=== PATIENT | female | born 1955 | race Caucasian/White ===

== ENCOUNTER 2016-11-04 07:19 | Inpatient (IN) | payer OTHER ==
[~2016-11-04] VITALS: Ht 170.2 cm; Wt 76.9 kg
--- NOTE | ~2016-11-04 | ER ---
PATIENT'S NAME: VIRGINIA HERNANDEZ [facility] AGE: 60 Y [address] ROOM: [place] [address] LOCATION: [facility] ADMIT DATE: 11/04/2016 ER/Outpatient Report DISCHARGE DATE: FAMILY PHYSICIAN: PHYSICIAN, NO ATTENDING PHYSICIAN: NESHA GARZON Time of Arrival: 0719 hours. Time of Evaluation: 0730 hours. IDENTIFICATION: A 60-year-old female. CHIEF COMPLAINT: Left hip pain. HISTORY OF PRESENT ILLNESS: The patient is a 60-year-old female from [place], who is traveling through [place] for a graduation ceremony this weekend. She was in [place] and was chasing the dog when she slipped on some loose gravel and landed on her left hip. She did not hit her head. No loss of consciousness. She has pain in her left hip and inability to bear weight since that happened. This happened last night. They continued to drive on to [place]. ALLERGIES: NO KNOWN DRUG ALLERGIES. CURRENT MEDICATIONS: 1. Zoloft 25 mg daily. 2. Lipitor 10 mg daily. 3. Metformin b.i.d. MEDICAL PROBLEMS: New onset diabetes mellitus type 2, hyperlipidemia, and depression. PRIOR SURGERIES: None noted. SOCIAL HISTORY: The patient lives in [place]. Tobacco use, denies. Alcohol use, social. Drug use, denies. FAMILY HISTORY: Coronary artery disease in her father. Hypertension and stroke in her mother. REVIEW OF SYSTEMS: PATIENT'S NAME: VIRGINIA HERNANDEZ [facility] AGE: 60 Y [address] ROOM: [place] [address] LOCATION: [facility] ADMIT DATE: 11/04/2016 ER/Outpatient Report DISCHARGE DATE: FAMILY PHYSICIAN: PHYSICIAN, NO ATTENDING PHYSICIAN: NESHA GARZON All systems reviewed and negative other than what is noted in the HPI. PHYSICAL EXAMINATION: VITAL SIGNS: Height 5 feet and 7 inches, weight 76.9 kg, blood pressure 173/80, pulse 73, respirations 16, temperature 98.1, and saturations 98%. GENERAL: A 60-year-old female, in no acute distress. HEENT: Head: Normocephalic and atraumatic. Eyes: Pupils equal and reactive to light and accommodation. Extraocular movements intact. TMs not visualized. Nose: Mucosa pink. No lesions. Mouth: No lesions. Pharynx benign. NECK: Supple. No lymphadenopathy. No nuchal rigidity. No tenderness to palpation of her cervical spine. LUNGS: Clear to auscultation. Breath sounds are equal. No rhonchi, wheezes, or rales. HEART: Regular rate and rhythm. No murmur, rub, or gallop. ABDOMEN: Bowel sounds present. Soft. Nondistended. No hepatosplenomegaly. No palpable masses. Nontender. SKIN: Ewa Gentry, warm, and dry. There is ecchymosis of her left hip. No other lesions or rashes noted. NEURO: The patient is alert and oriented x4. Cranial nerves II through XII grossly intact. Motor strength 5/5 throughout. Sensation is intact to light touch. The patient is tender over the left hip. X-RAYS: Left hip and pelvis x-ray revealed a slightly displaced femoral neck fracture, pending Radiology over-read. Chest x-ray, 1 view, no acute process, pending Radiology over-read. EKG showed normal sinus rhythm at 73 beats per minute, no acute ST elevation or depression. EMERGENCY DEPARTMENT COURSE: An IV was initiated. The patient did not want anything for pain control. LABORATORY DATA: Sodium 144, potassium 3.8, chloride 111, CO2 of 23, BUN 18, creatinine 1.0, and blood sugar 117. Hemoglobin 12.6, hematocrit 39.4, platelets 304, white count 10.8 with a normal differential. INR 0.92. IMPRESSION AND PLAN: 1. Left femoral neck fracture. Plan discussed with Dr. Dupree, Orthopedic Trauma surgeon on-call, who recommended fixation. She will be admitted to the hospital. She did have a lot of questions about returning to [place]. We did talk about risks of doing so. The patient agreed for admission here per our Hospitalist Service with orthopedic consultation. 2. Diabetes mellitus type 2. 3. Hyperlipidemia. PATIENT'S NAME: VIRGINIA HERNANDEZ [facility] AGE: 60 Y [address] ROOM: [place] [address] LOCATION: [facility] ADMIT DATE: 11/04/2016 ER/Outpatient Report DISCHARGE DATE: FAMILY PHYSICIAN: PHYSICIAN, NO ATTENDING PHYSICIAN: NESHA GARZON 4. Depression. Again, the patient refused any pain control here in the emergency room. MD KAYLAH ALDRICH/phil /[id number] d: 11/04/162250 t: 11/12/16 1926, OUTPATIENT REPORT
--- NOTE | ~2016-11-04 | OR ---
PATIENT'S NAME: VIRGINIA HERNANDEZ [facility] AGE: 60 Y [address] ROOM: [place] [address] LOCATION: [facility] ADMIT DATE: 11/04/2016 OR/Procedure Report DISCHARGE DATE: FAMILY PHYSICIAN: PHYSICIAN, NO ATTENDING PHYSICIAN: NESHA GARZON SURGEON: Frank Norris MD GEOSCIENCE TECHNICIAN: Ashish Dupree PA-C. DATE OF PROCEDURE: 11/04/2016 CORRECTED WORK TYPE 11/05/16 AO PREOPERATIVE DIAGNOSIS: Left nondisplaced proximal hip fracture. POSTOPERATIVE DIAGNOSIS: Left nondisplaced proximal hip fracture. PROCEDURES PERFORMED: 1. Closed reduction and percutaneous pinning of the left hip. 2. Use of intraoperative fluoroscopy, less than one hour. ANESTHESIA: General endotracheal anesthesia. FLUIDS: See Anesthesia report. ESTIMATED BLOOD LOSS: Minimal. TOURNIQUET: None. SPECIMENS: None. COMPLICATIONS: None. DISPOSITION: None. IMPLANTS: Synthes 7.3-mm partially threaded and cannulated screws x3. INDICATIONS: Ms. Hernandez is a pleasant 60-year-old female, who underwent the noted procedures above. The risks, benefits, and alternatives of pursuing a surgical intervention were discussed with the patient in detail. She elected to proceed with surgery. Anesthesia was consulted for their perioperative evaluation of the patient. I marked the left lower extremity and indicated the correct surgical site. OPERATIVE REPORT IN DETAIL: The patient was taken from the holding area to the Operating Room. A time-out was performed. General endotracheal anesthesia was administered. Ancef antibiotic was administered for perioperative prophylaxis. PATIENT'S NAME: VIRGINIA HERNANDEZ [facility] AGE: 60 Y [address] ROOM: [place] [address] LOCATION: [facility] ADMIT DATE: 11/04/2016 OR/Procedure Report DISCHARGE DATE: FAMILY PHYSICIAN: PHYSICIAN, NO ATTENDING PHYSICIAN: NESHA GARZON The left lower extremity was then prepped and draped in a sterile fashion. A closed reduction of the left hip was ensued under intraoperative fluoroscopy. A final time-out was performed. The left lower extremity was prepped and draped in a sterile fashion. I turned my attention to the left hip. I introduced the pin in an inferior center-center position at the level of the calcar. I introduced the pin and confirmed its position fluoroscopically. Using a Linda gun, I placed and anterior-superior and posterior-superior pin forming an inverted triangle configuration. The surgical incisions were made at the percutaneous sites. They were subsequently measured. The pins were then overdrilled, and 7.3 mm partially threaded and cannulated screws were placed in a sequence from the inferior center-center screw to the posterior- superior followed by the anterior-superior screw. They were then tightened in sequence. There was good bony compression and purchase with these screws. The pins were subsequently removed. Final fluoroscopic images of the hip revealed a near anatomic closed reduction and percutaneous pinning of the left hip. The wound was then copiously irrigated with normal sterile saline solution and closed in layers. A sterile Mepilex bandage was placed over the hip. The patient was then transferred to the hip fracture table onto the hospital bed, and was extubated. She was brought to the Recovery Room in stable condition. There were no intraoperative complications noted. Of note, my PA, Ashish Dupree PA-C, played an integral role in the intraoperative care of this patient. This included preoperative positioning, intraoperative expert retraction, and closing and dressing functions. IMPRESSION: The patient is status post the noted procedure above. PLAN: The patient will be toe-touch weightbearing on the left lower extremity. Physical Therapy and Occupational Therapy will be consulted for early ambulation and prevention of deconditioning. Postoperative DVT prophylaxis will be in the form of Lovenox. Postoperative pain control in the form of Percocet and IV morphine as needed for pain. The hospitalist will continue to monitor the patient to manage the patient's concomitant medical comorbidities. The patient will also receive postoperative antibiotics per routine. I will continue to follow this patient closely in the postoperative period. PATIENT'S NAME: VIRGINIA HERNANDEZ [facility] AGE: 60 Y [address] ROOM: [place] [address] LOCATION: [facility] ADMIT DATE: 11/04/2016 OR/Procedure Report DISCHARGE DATE: FAMILY PHYSICIAN: PHYSICIAN, NO ATTENDING PHYSICIAN: NESHA GARZON MD MENDOZA LUCIANO/phil /[id number] CORRECTED WORK TYPE 11/05/16 AO d: 11/04/16 2259 t: 11/05/16 1300, OPERATIVE SUMMARY
--- NOTE | ~2016-11-04 | HP ---
PATIENT'S NAME: VIRGINIA ENCARNACION [facility] AGE: 60 Y [address] ROOM: [address] [address] LOCATION: [facility] ADMIT DATE: 11/04/2016 History & Physical DISCHARGE DATE: FAMILY PHYSICIAN: PHYSICIAN, NO ATTENDING PHYSICIAN: NESHA GARZON DATE OF SERVICE: 11/04/2016 CHIEF COMPLAINT: Left hip and groin pain. HISTORY OF PRESENT ILLNESS: Ms Encarnacion is a pleasant 60-year-old female who was admitted to the hospital from the emergency room with a left hip fracture. The patient reports she fell in [place] yesterday onto her left side. At that time, she was unable to bear weight, complained of pain and discomfort. She has taken ibuprofen for pain. She got into the car with one of her family members and drove from [place] to [place]. The pain was not getting any better, so she presented to the emergency room here at [facility] where she was seen and evaluated and diagnosed with a hip fracture. She is currently on bedrest. Pain control in the form of ibuprofen. She has been n.p.o. since 5:00 a.m. this morning. Aggravating factors include manipulation of the hip, attempted weightbearing and movement of the left lower extremity. Alleviating factors include rest, ice, elevation, placing, pulling along the leg. The patient denies any previous trauma or surgery to the left hip. The date of this injury was in fact on 11/03/2016 in the evening. Currently, the patient denies any constitutional symptoms such as fever, chills, or night sweats. She also denies any dizziness, chest pain, shortness of breath, blurred vision, nausea, vomiting, or diarrhea. REVIEW OF SYSTEMS: A 10-point review of system otherwise mentioned above in the HPI. The patient's issue is musculoskeletal, pertains to the left lower extremity. There is pain, discomfort, and tenderness to palpation over the left hip and groin region. PAST MEDICAL HISTORY: Borderline type 2 diabetes mellitus, controlled with diet, hypercholesterolemia. PAST SURGICAL HISTORY: None. ALLERGIES: NO KNOWN DRUG ALLERGIES. PATIENT'S NAME: VIRGINIA ENCARNACION [facility] AGE: 60 Y [address] ROOM: [address] [address] LOCATION: N ADMIT DATE: 11/04/2016 History & Physical DISCHARGE DATE: FAMILY PHYSICIAN: PHYSICIAN, NO ATTENDING PHYSICIAN: NESHA GARZON MEDICATIONS: Currently being reconciled. FAMILY HISTORY: Includes diabetes and hypertension in her mother and father's side of the family. SOCIAL HISTORY: The patient lives at home, she is independent ambulator at baseline. She reports that she is from [place], [place]. She denies any alcohol, tobacco, or illicit drug use. PHYSICAL EXAMINATION: VITAL SIGNS: She is currently afebrile, vital signs are stable. She is in no acute distress. She is awake, alert, and oriented x3. She is actively conversing with me at the bedside. HEENT: Normocephalic and atraumatic. Extraocular movements are intact. PERRLA. Moist mucous membranes. Oropharyngeal airway is clear. NECK: Supple. Trachea is in the midline. CARDIOVASCULAR: Regular rate and rhythm. CHEST: Normal symmetric respirations observed bilaterally. ABDOMEN: Soft nontender nondistended. PELVIS: Stable. MUSCULOSKELETAL: Left lower extremity: Focal examination of the patient's left lower extremity reveals she is grossly neurologically intact distally. Compartments of thigh, leg, and foot are soft. There is tenderness to palpation around the proximal thigh and the level of the groin region. There is palpable dorsalis pedal and posterior tibial pulses. There is good capillary refill in the toes. The limb is short and externally rotated relative to the contralateral limb. IMAGING: Plain radiographs of the left hip reveal evidence of a nondisplaced hip fracture. IMPRESSION: Left nondisplaced fracture of the hip. PLAN: I had a long discussion with the patient regarding her left hip. There is a nondisplaced fracture. I am recommending closed reduction and percutaneous pinning procedure. I discussed the risks, benefits, and alternatives pursuing a surgical intervention with the patient detail. I discussed the risks of anesthesia, infection, bleeding, and/or injury to neurovascular structures PATIENT'S NAME: VIRGINIA ENCARNACION [facility] AGE: 60 Y [address] ROOM: [address] [address] LOCATION: [facility] ADMIT DATE: 11/04/2016 History & Physical DISCHARGE DATE: FAMILY PHYSICIAN: PHYSICIAN, RANDELL ATTENDING PHYSICIAN: NESHA GARZON about the left lower extremity. She expressed understanding of this. Informed consent was obtained, the patient elected to proceed with surgery. The patient be n.p.o. for now. She will remain on bed rest. We will plan for surgery as soon as this afternoon. I have answered all the patient's questions at the bedside to her satisfaction in the presence of her family. MD MENDOZA LUCIANO/phil /[id number] D: 427 T: 451 HISTORY & PHYSICAL
--- NOTE | ~2016-11-04 | HP ---
PATIENT'S NAME: ASA HERNANDEZRY Sadie [facility] AGE: 60 Y [address] ROOM: [place] [address] LOCATION: [facility] ADMIT DATE: 11/04/2016 History & Physical DISCHARGE DATE: FAMILY PHYSICIAN: , RANDELL ATTENDING PHYSICIAN: NESHA GARZON DATE OF SERVICE: CHIEF COMPLAINT: Fall. HISTORY OF PRESENT ILLNESS: A 60-year-old lady with newly diagnosed prediabetes, who was traveling from [place] to [place] from graduation of her daughter from [employer]. She experienced a fall in [place], while she was running after her dog, and experienced a mechanical fall and started having pain in her left hip. She and her friend kept driving overnight and reached [place] this morning. Initial evaluation in the emergency department revealed a left hip fracture and she is being admitted for open reduction and internal fixation. On my encounter, she says she is pain-free right now. She denied headache, any trouble with the eyes, any dizziness, any difficulty swallowing, any chest pain, any palpitation, any cough, any sputum production, any abdominal pain, constipation, diarrhea, burning on urination, extremity swelling, PND, orthopnea, or leg swelling. REVIEW OF SYSTEMS: All other systems reviewed and were negative except what is mentioned in the HPI. ALLERGIES: NO KNOWN DRUG ALLERGIES. PAST MEDICAL HISTORY: 1. Newly diagnosed prediabetes. 2. Depression. 3. Hyperlipidemia. MEDICATIONS: 1. Zoloft. 2. Metformin. 3. Atorvastatin. FAMILY HISTORY: Family history is significant for coronary artery disease in father. Hypertension in mother and stroke in mother. PATIENT'S NAME: VIRGINIA HERNANDEZ [facility] AGE: 60 Y [address] ROOM: [place] [address] LOCATION: [facility] ADMIT DATE: 11/04/2016 History & Physical DISCHARGE DATE: FAMILY PHYSICIAN: PHYSICIAN, NO ATTENDING PHYSICIAN: NESHA GARZON SOCIAL HISTORY: Never a smoker. No alcohol or drug abuse. PHYSICAL EXAMINATION: VITAL SIGNS: 173/67, 16, 84, and afebrile. GENERAL: In no acute distress. Alert and oriented x3. HEENT: Head; atraumatic and normocephalic. Eyes; nonicteric. No pallor. Oropharynx; moist mucous membranes. CARDIOVASCULAR: S1 and S2. No murmurs, gallops, or rubs. LUNGS: Clear to auscultation bilaterally. ABDOMEN: Soft, nontender, nondistended. Bowel sounds present. EXTREMITIES: No clubbing, cyanosis, or edema. MUSCULOSKELETAL: Left hip tenderness noted. The left leg is externally rotated. PSYCHIATRIC: Normal affect, mood, and speech. NEUROLOGIC: Cranial nerves 2 through 12 intact. No motor or sensory deficits noted. DIAGNOSTIC DATA: EKG done in the emergency department showed sinus rhythm, without any acute ST- T wave changes. Left femoral neck fracture per verbal report from the emergency department. LABORATORY DATA: Laboratory works are pending at this point. ASSESSMENT AND PLAN: 1. Fall. 2. Newly diagnosed prediabetes. 3. Left femoral neck fracture. Plan: We are going to admit this patient for inpatient. Essentially, she is a low risk for this low risk procedure. She had METs greater than 4. Does not have any insulin-dependent diabetes. Never had stroke. Does not have heart failure. Does not have any coronary artery disease. We will wait for the creatinine to come back. Deep venous thrombosis prophylaxis per Orthopedic Surgery. Right now SCDs. Pain control. We will follow this patient. MD NELY DAVIS/phil PATIENT'S NAME: VIRGINIA HERNANDEZ [facility] AGE: 60 Y [address] ROOM: [address] [address] LOCATION: [facility] ADMIT DATE: 11/04/2016 History & Physical DISCHARGE DATE: FAMILY PHYSICIAN: PHYSICIAN, NO ATTENDING PHYSICIAN: NESHA GARZON /[id number] D: 422 T: HISTORY & PHYSICAL
--- NOTE | ~2016-11-04 | DS ---
PATIENT'S NAME: VIRGINIA HERNANDEZ [facility] AGE: 60 Y [address] ROOM: [address] [place], [place] [address] LOCATION: [facility] ADMIT DATE: 11/04/2016 Discharge Summary DISCHARGE DATE: 11/05/2016 FAMILY PHYSICIAN: PHYSICIAN, NO ATTENDING PHYSICIAN: Moriah Grewal CONSULTING PHYSICIAN: Frank Norris M.D. DISCHARGE DIAGNOSES: 1. Left hip fracture. 2. Diabetes mellitus type 2. 3. Depression. 4. Hyperlipidemia. PROCEDURE PERFORMED: Closed reduction and percutaneous pinning of the left hip done on 11/04/[address] Frank Norris. HOSPITAL COURSE: Please refer to admitting history and physical as dictated by Dr. Grewal. Briefly, the patient was admitted to [facility] where she was found to have a left hip fracture. Dr. Norris was consulted for the hip fracture. She was started on a mild sliding scale insulin regimen while hospitalized. She was taken to surgery on the same day where she underwent left closed reduction and percutaneous pinning of her hip. She tolerated the procedure well. She was made toe-touch weightbearing to the left lower extremity. Her home medications were resumed. Postoperatively, she worked with PT and OT where she did quite well. She was up ambulatory in the hallway with crutches. It is recommended she continue toe-touch weightbearing to the left lower extremity for 6 weeks. She should follow up with an orthopedic surgeon closer to home in 2 weeks. Lovenox will be used for DVT prophylaxis. Her sugars were well controlled while hospitalized. On the day of discharge, her vital signs were stable. Hemoglobin 11.9. It was felt as though she was stable to discharge to home. She should follow up with her family physician at the beginning of next week who will help her set up an appointment to see an orthopedic surgeon near her hometown within the next 2 weeks. LABORATORY DATA: Sodium remained stable at 140 to 144, potassium 3.8 to 4.2, CO2 of 23, BUN 11 to 18, creatinine 0.7 to 1.0. GFR upon admit 56, prior to discharge 60. Prealbumin 31. Hemoglobin A1c 6.3. WBCs 10.8 upon admit, 12.0 upon discharge; hemoglobin 12.6 preop, 11.9 postop; hematocrit 37.0 to 39.4; platelets 287 to 304. UA negative. X-ray of the left hip showed subcapital fracture of the proximal left femur with impaction and minimal bone displacement. PATIENT'S NAME: VIRGINIA HERNANDEZ [facility] AGE: 60 Y [address] ROOM: [place] [address] LOCATION: [facility] ADMIT DATE: 11/04/2016 Discharge Summary DISCHARGE DATE: 11/05/2016 FAMILY PHYSICIAN: RANDELL AG ATTENDING PHYSICIAN: Moriah Grewal DISCHARGE INSTRUCTIONS: The patient will be discharged to home. Diet as tolerated. Activity, toe-touch weightbearing left lower extremity. Followup appointment with [place]opedic surgeon [place]. Followup with her family physician at the beginning of next week. DISCHARGE MEDICATIONS: 1. Aspirin 81 mg p.o. daily. 2. Lipitor 20 mg p.o. daily. 3. Latanoprost 2.5 mL 1 drop ophthalmically both eyes at bedtime. 4. Metformin 500 mg p.o. twice a day. 5. Zoloft 25 mg p.o. at bedtime. 6. Percocet 5/325 mg 1 or 2 tablets p.o. every 4 to 6 hours as needed for pain. 7. Lovenox 40 mg 1 injection subcu daily for 30 days. Thank you for allowing us to participate in the care of this patient as she has been hospitalized at [facility]. LEW CARRILLO, AMBERLY FOR MD LITZY CONSTANTINO/phil /[id number] d: 11/06/16 0844 t: 11/18/16 1726, DISCHARGE SUMMARY
[2016-11-04 09:00] LABS: BASOPHIL % 0.2 %; EOSINOPHIL # 0.4 K/uL (0.0-0.5); HEMATOCRIT 39.4 % (33.0-46.0); HEMOGLOBIN 12.6 g/dL (10.0-15.0); IMMATURE GRANULOCYTE % 0.4 %; LYMPHOCYTE # 2.3 K/uL (0.8-4.0); LYMPHOCYTE % 21.2 %; MCH 28.3 pg (27.0-34.0); MCV 88.5 fl (83.0-98.0); MONOCYTE # 0.8 K/uL (0.0-1.0); MONOCYTE % 7.1 %; MPV 9.9 fl (9.4-12.4); NEUTROPHIL # (ANC) 7.2 K/uL (1.8-7.8); NEUTROPHIL % 67.1 %; NRBC % 0 /100WBC (0-0.00); PLATELET COUNT 304 K/uL (150-450); RBC 4.45 M/uL (3.50-5.50); RDW-CV 13.3 % (11.9-14.6); WBC 10.8 K/uL (4.0-11.0)
[2016-11-04 09:14] LABS: ANION GAP 13.8 (10.0-19.0); CALCIUM 8.9 mg/dL (8.5-10.5); PHOSPHORUS 2.7 mg/dL (2.5-4.9); POTASSIUM 3.8 mMol/L (3.7-5.1)
--- NOTE | 2016-11-04 09:30 | NUR ---
d: Patient up to floor from ER at 0930 for fracture L) hip. patient reported had fallen last night on gravel. Is from [place] and was traveling to [place] for a family graduation. note bandaid to l) hand palm abrasion. l) hip pain tolerable. csm assessments wnl to l) lower extremity. patient reports is a diabetic.
[2016-11-04] MEDS ORDERED: ASPIRIN LO-DOSE81 MG PO (09:37)
[2016-11-04] MEDS ORDERED: LIPITOR20 M1 PO (09:37)
[2016-11-04] MEDS ORDERED: LATANOPROST2.5 ML OPHTH (09:38)
[2016-11-04] MEDS ORDERED: GLUCOPHAGE500 MG PO (09:38)
[2016-11-04] MEDS ORDERED: ZOLOFT25 MG PO (09:38)
[2016-11-04 09:39] LABS: INR - (THERAPEUTIC) 0.92 (0.92-1.07); PROTIME 9.7 SECONDS (9.8-11.4); PTT 25 SECONDS (25-32)
[2016-11-04 12:35] LABS: BILIRUBIN URINE NEGATIVE (NEGATIVE); BLOOD URINE NEGATIVE /UL (NEGATIVE); GLUCOSE URINE NEGATIVE (NEGATIVE); KETONE URINE NEGATIVE (NEGATIVE); LEUKOCYTES URINE NEGATIVE /UL (NEGATIVE); NITRITE URINE NEGATIVE (NEGATIVE); PROTEIN URINE NEGATIVE (NEGATIVE); UROBILINOGEN URINE NORMAL (NORMAL)
[2016-11-04 12:37] LABS: COLOR URINE YELLOW (YELLOW); TURBIDITY URINE CLEAR (CLEAR)
--- NOTE | 2016-11-04 19:16 | NUR ---
Significant Event: patient to surgery at 1410 and returned to floor at 1745. mepilex dressing to l) hip c/d/i. csm assessments wnl to l) lower extremity. rates l) hip pain 3 on pain scale, states tolerable. bilateral calf pumps on. diabetic diet. accucheck 178 at 1845. Follow up:
--- NOTE | 2016-11-05 04:14 | NUR ---
Significant Event: A/O X 3. IV SALINE LOCKED. TAKING PO FLUIDS WELL. NO NAUSEA. LEFT HIP DRSGS MEPILEX HAS MODERATE AMOUNT BLOODY DRAINAGE NOTED. ICE BAG TO LEFT HIP. BILATERAL CALF PNEUMATICS ON. DENIES NUMBNESS-TINGLING TO FEET-TOES. HAS SLIGHT NUMB SENSATION TO LEFT HIP, MOSTLY GONE NOW. HAD PERCOCET TAB ONE AT 2102 FOR PAIN LEFT HIP RATED A 4, AT 2200 2 RATING. INCENTIVE SPIROMETER USAGE 1500. ATB THERAPY ANCEF IV AT 2300, NEXT DOSE AT 0700. WANTING TO GO HOME TODAY. UP WITH ONE ASSIST TO COMMODE VOIDS LARGE AMOUNTS X 2. UP WITH GAITBELT, TTWB LEFT LEG. Follow up:
[2016-11-05 06:28] LABS: BASOPHIL % 0.3 %; EOSINOPHIL # 0.2 K/uL (0.0-0.5); EOSINOPHIL % 1.3 %; HEMOGLOBIN 11.9 g/dL (10.0-15.0); IMMATURE GRANULOCYTE # 0.1 K/uL (0.0-0.3); IMMATURE GRANULOCYTE % 0.4 %; LYMPHOCYTE # 1.4 K/uL (0.8-4.0); LYMPHOCYTE % 11.4 %; MCH 28.4 pg (27.0-34.0); MCHC 32.2 gm/dL (32.0-36.5); MCV 88.3 fl (83.0-98.0); MONOCYTE # 0.7 K/uL (0.0-1.0); MONOCYTE % 5.8 %; NEUTROPHIL # (ANC) 9.7 K/uL (1.8-7.8); NEUTROPHIL % 80.8 %; NRBC % 0 /100WBC (0-0.00); PLATELET COUNT 287 K/uL (150-450); RBC 4.19 M/uL (3.50-5.50); RDW-CV 13.2 % (11.9-14.6)
[2016-11-05 06:41] LABS: ANION GAP 12.2 (10.0-19.0); BLOOD UREA NITROGEN 11 mg/dL (6-24); CALCIUM 8.7 mg/dL (8.5-10.5); CHLORIDE 111 mMol/L (96-110); CO2 23 mMol/L (22-32); CREATININE 0.7 mg/dL (0.5-1.1); ESTIMATED GFR (MDRD EQUATION) > 60; POTASSIUM 4.2 mMol/L (3.7-5.1); SODIUM 142 mMol/L (135-145)
[2016-11-05] MEDS ORDERED: LOVENOX40 MG/0.4 PO (11:31)
[2016-11-05] MEDS ORDERED: PERCOCET 5-3251 EACH PO (11:32)
--- NOTE | 2016-11-05 12:00 | NUR ---
SPOKE TO PATIENT REGARDING CM AND OUR ROLE. PATIENT LIVES IN [place] AND IS HERE VISITING FAMILY PATIENT IS PLANNING ON BEING DISCHARGE LATER TODAY. SHE HAS CRUTCHES AND DOES NOT ANTICIPATE ANY DISCHARGE NEEDS AT THIS TIME.
--- NOTE | 2016-11-05 15:00 | NUR ---
D: PATIENT ALERT AND ORIENTED X3. MEPILEX DRESSING TO L) HIP CHANGED THIS AM, INCISION APPROXIMATED, DIANA INTACT, STERILE MEPILEX DRESSING APPLIED. NOTE DRESSING C/D/I PRIOR TO DISCHARGE. CSM ASSESSMENTS WNL. PAIN WELL CONTROLLED WITH PERCOCET 1 TAB GIVEN LAST AT 1500. AMBULATES TO BATHROOM AND UP TO CHAIR WITH SBA, USE OF CRUTCHES AND GAIT BELT. LOVENOX TEACHING DONE. ICE TO L) HIP. DISCHARGE INSTRUCTIONS REVIEWED WITH PATIENT AND SISTER, VERBALIZES UNDERSTANDING. DISMISSED TO HOME, ACCOMPANIED BY SISTER. ASSISTED TO VEHICLE VIA W/C AND TRANSPORT ASSISTANCE.
== END 2016-11-05 14:59 | disposition disaster alternative care site (69) | DRG 482 ==
LOC: GACC 07:19 → G3N 08:33
PROVIDERS: Family Medicine; ADMIT Internal Medicine
PROC: 0QS734Z Reposition Left Upper Femur with Internal Fixation Device, Percutaneous Approach (ICD-10-PCS; principal; 2016-11-04)
DX: S72.002A Fracture of unspecified part of neck of left femur, initial encounter for closed fracture (principal); F32.9 Major depressive disorder, single episode, unspecified; E78.00 Pure hypercholesterolemia, unspecified; R73.03 Prediabetes; W18.30XA Fall on same level, unspecified, initial encounter; E78.5 Hyperlipidemia, unspecified
CPT/HCPCS: C1713; J0690; J1650; J2250; J2405; J3010; J3480; J7030